=== PATIENT | female | born 1950 ===

== ENCOUNTER 2018-03-01 04:55 | Day surgery (SDC) | payer OTHER ==
[~2018-03-01 04:55] MED LIST: ASA81 MG PO; ATENOLOL25 MG PO; AVAPRO300 MG PO; CALCIUM500 M1 PO; CARDURA XL4 MG PO; GLIPIZIDE XL2.5 MG PO; GLYCOPYRROLATE2 MG PO; LIPITOR40 MG PO; NITROGLYCERIN0.4 MG SL; OMEPRAZOLE20 MG PO; VITAMIN D2000 UNI1 PO
[2018-03-01] MEDS ORDERED: MACROBID 100 M100 MG PO (14:04)
[2018-03-01] MEDS ORDERED: ULTRACET PO (14:05)
[2018-03-02] MEDS ORDERED: ACETAMINOPHEN-1 EAC2 PO (02:34)
== END 2018-03-01 17:20 | disposition home or self-care (01) ==
LOC: CIR.AMB 04:55
DX: N81.11 Cystocele, midline (principal); N81.5 Vaginal enterocele

== ENCOUNTER 2018-03-01 23:10 | Emergency (ER) | payer OTHER ==
[~2018-03-01] VITALS: Ht 167.6 cm; Wt 90.7 kg
[~2018-03-01 23:10] MED LIST changes: +MACROBID 100 M100 MG PO; +ULTRACET PO
[2018-03-02] MEDS ORDERED: ACETAMINOPHEN-1 EAC2 PO (02:34)
== END 2018-03-02 02:41 | disposition home or self-care (01) ==
LOC: ER 23:10
DX: T83.098A Other mechanical complication of other urinary catheter, initial encounter (principal); Z98.890 Other specified postprocedural states; Y73.1 Therapeutic (nonsurgical) and rehabilitative gastroenterology and urology devices associated with adverse incidents; Y92.89 Other specified places as the place of occurrence of the external cause